=== PATIENT | female | born 1970 | race Caucasian/White ===

== ENCOUNTER 2022-09-21 14:04 | Emergency (ER) | payer OTHER, SELFPAY ==
--- NOTE | ~2022-09-21 | XR_ITS ---
EXAMINATION: XR CHEST CLINICAL INFORMATION: Cough and shortness of breath COMPARISON: Chest x-ray 12/22/2017 TECHNIQUE: 2 views of the chest were obtained. FINDINGS: Lungs appear slightly hyperinflated with mildly increased AP diameter the chest and slight flattening of the diaphragm. No airspace consolidation. No pleural effusion or pneumothorax. Normal cardiomediastinal silhouette. No evidence of pulmonary edema. Mildly exaggerated thoracic kyphosis with multilevel degenerative disc disease. Chronic left posterolateral rib fracture deformities redemonstrated. XR/XR chest 2V IMPRESSION: 1. No acute pulmonary process. 2. Slightly hyperinflated lungs suggesting underlying COPD.
--- NOTE | 2022-09-21 14:32 | ED_ITS ---
HPI - URI/Sore Throat General Chief Complaint: Upper Respiratory Symptoms <Claudine Swanson CNP - Last Filed: 09/21/22 14:34> Stated Complaint: Cough <Claudine Swanson CNP - Last Filed: 09/21/22 14:34> Time Seen by Provider: 09/21/22 15:06 <Claudine Swanson CNP - Last Filed: 09/21/22 14:34> Source: patient <Cherie Ace NP - Last Filed: 09/21/22 17:45> Mode of arrival: ambulatory <Cherie Ace NP - Last Filed: 09/21/22 17:45> Limitations: no limitations <Cherie Ace NP - Last Filed: 09/21/22 17:45> History of Present Illness HPI Narrative: 52-year-old female with a longstanding smoking history presents with 2 months of productive cough with green sputum, wheezing, shortness of breath with activity. Patient denies chest pain, fevers, leg swelling, leg pain. <Cherie Ace NP - Last Filed: 09/21/22 17:45> Related Data Home Medications: Previous Rx's Medication Instructions Recorded albuterol sulfate 90 mcg/actuation 2 puff inhalation Q6H PRN 09/21/22 aerosol inhaler shortness of breath or wheezing #8.5 grams doxycycline monohydrate 100 mg 100 mg PO BID #14 caps 09/21/22 capsule prednisone 20 mg tablet 40 mg PO DAILY #10 tabs 09/21/22 <Claudine Swanson CNP - Last Filed: 09/21/22 14:34> Allergies/Adverse Reactions: Allergies Allergy/AdvReac Type Severity Reaction Status Date / Time No Known Allergies Allergy Unverified 05/10/20 15:57 <Claudine Swanson CNP - Last Filed: 09/21/22 14:34> Review of Systems Review of Systems: Yes all other systems are reviewed and are negative <Cherie Ace NP - Last Filed: 09/21/22 17:45> Constitutional: Constitutional: Reports no additional constitutional complaints, Denies body ache(s), Denies chills, Denies fever(s), Denies headache(s) and Denies weakness <Cherie Ace ENVIRONMENTAL HEALTH MANAGER - Last Filed: 09/21/22 17:45> Eyes: Eyes: Reports no additional eye complaints and Denies change in vision <Cherie Ace ENVIRONMENTAL HEALTH MANAGER - Last Filed: 09/21/22 17:45> ENT: Reports system reviewed and no additional complaints, except as documented, Denies dizziness, Denies headache(s), Denies nasal congestion, Denies nasal discharge and Denies neck pain <Cherie Ace ENVIRONMENTAL HEALTH MANAGER - Last Filed: 09/21/22 17:45> Cardiovascular: Cardiovascular: Reports no additional cardiovascular complaints, Denies chest pain, Denies leg edema and Reports dyspnea <Cherie Ace ENVIRONMENTAL HEALTH MANAGER - Last Filed: 09/21/22 17:45> Respiratory: Respiratory: Reports no additional respiratory complaints, Reports cough, Reports dyspnea and Reports wheezing <Cherie Ace ENVIRONMENTAL HEALTH MANAGER - Last Filed: 09/21/22 17:45> Gastrointestinal: Gastrointestinal: Reports no additional gastrointestinal complaints, Denies abdominal pain, Denies diarrhea, Denies nausea and Denies vomiting <Cherie Ace ENVIRONMENTAL HEALTH MANAGER - Last Filed: 09/21/22 17:45> Genitourinary: Genitourinary: Reports no additional female genitourinary complaints and Denies urinary incontinence <Cherie Ace ENVIRONMENTAL HEALTH MANAGER - Last Filed: 09/21/22 17:45> Musculoskeletal: Musculoskeletal: Reports no additional musculoskeletal complaints, Denies back pain, Denies arthralgias, Denies joint swelling, Denies neck pain, Denies numbness and Denies tingling <Cherie Ace ENVIRONMENTAL HEALTH MANAGER - Last Filed: 09/21/22 17:45> Integumentary/Breasts: Skin/Breast: Reports system reviewed and no additional complaints, except as docu and Denies rash <Cherie Ace ENVIRONMENTAL HEALTH MANAGER - Last Filed: 09/21/22 17:45> Neurologic: Reports system reviewed and no additional complaints, except as documented, Denies Abnormal speech present, Denies dizziness, Denies headache(s), Denies numbness, Denies tingling and Denies weakness <Cherie Ace ENVIRONMENTAL HEALTH MANAGER - Last Filed: 09/21/22 17:45> Allergic/Immunologic: Allergic/Immunologic: Reports wheezing <Cherie Ace NP - Last Filed: 09/21/22 17:45> [facility] Past Medical History Attestation statement: The following information was validated with the patient. <Cherie Ace NP - Last Filed: 09/21/22 17:45> Source: old records reviewed and nursing notes reviewed <Cherie Ace NP - Last Filed: 09/21/22 17:45> Social History Social History: Social History Advance Directives: No Advance Directives Information Provided: No <Claudine Swanson CNP - Last Filed: 09/21/22 14:34> Physical Exam Vital Signs: Vital Signs: Last Vital Signs Temp 97.9 F 09/21/22 14:33 Pulse 72 09/21/22 14:33 Resp 18 09/21/22 14:33 BP 125/56 L 09/21/22 14:33 Pulse Ox 94 09/21/22 14:33 O2 Del Method 09/21/22 14:33 BMI result Body Mass Index 23.0 <Claudine Swanson CNP - Last Filed: 09/21/22 14:34> Vital Signs: Last Vital Signs Temp 97.9 F 09/21/22 14:33 Pulse 72 09/21/22 14:33 Resp 18 09/21/22 14:33 BP 125/56 L 09/21/22 14:33 Pulse Ox 94 09/21/22 14:33 O2 Del Method 09/21/22 14:33 BMI result Body Mass Index 23.0 <Cherie Ace NP - Last Filed: 09/21/22 17:45> Const: General: cooperative, healthy appearing, comfortable and no acute distress <Cherie Ace NP - Last Filed: 09/21/22 17:45> Orientation/consciousness: patient oriented x3 <Cherie Ace NP - Last Filed: 09/21/22 17:45> Limitations: no limitations <Cherie Ace NP - Last Filed: 09/21/22 17 :45> HEENT: Head: Yes normal to inspection <Cherie Ace ENVIRONMENTAL HEALTH MANAGER - Last Filed: 09/21/22 17:45> Ears: hearing grossly normal bilaterally and TM's normal bilaterally <Cherie Ace ENVIRONMENTAL HEALTH MANAGER - Last Filed: 09/21/22 17:45> General nose exam: Normal external nose present <Cherie Ace ENVIRONMENTAL HEALTH MANAGER - Last Filed: 09/21/22 17:45> Face and sinus: Yes normal facial exam <Cherie Ace ENVIRONMENTAL HEALTH MANAGER - Last Filed: 09/21/22 17:45> Mouth: Normal oral and palatal mucosa present <Cherie Ace ENVIRONMENTAL HEALTH MANAGER - Last Filed: 09/21/22 17:45> Throat: Yes posterior oropharynx normal, Yes tonsils normal and Yes uvula midline <Cherie Ace ENVIRONMENTAL HEALTH MANAGER - Last Filed: 09/21/22 17:45> Eyes: General: appearance normal, both eyes and all related structures <Cherie Ace ENVIRONMENTAL HEALTH MANAGER - Last Filed: 09/21/22 17:45> Pupils: Equal, round and reactive pupils present <Cherie Ace ENVIRONMENTAL HEALTH MANAGER - Last Filed: 09/21/22 17:45> Neck: Neck: Yes normal visual inspection, Yes full ROM, Yes no lymphadenopathy and Yes no meningeal signs <Cherie Ace ENVIRONMENTAL HEALTH MANAGER - Last Filed: 09/21/22 17:45> Chest: Chest palpation & inspection: normal inspection of the chest <Cherie Ace ENVIRONMENTAL HEALTH MANAGER - Last Filed: 09/21/22 17:45> Resp: Effort & Inspection: normal respiratory effort <Cherie Ace ENVIRONMENTAL HEALTH MANAGER - Last Filed: 09/21/22 17:45> Auscultation: clear to auscultation bilaterally <Cherie Ace ENVIRONMENTAL HEALTH MANAGER - Last Filed: 09/21/22 17:45> Cardio: Rate: regular rate <Cherie Ace ENVIRONMENTAL HEALTH MANAGER - Last Filed: 09/21/22 17:45> Rhythm: regular rhythm <Cherie Ace ENVIRONMENTAL HEALTH MANAGER - Last Filed: 09/21/22 17:45> Peripheral pulses: Peripheral pulses 2+ throughout <Cherie Pascucci, ENVIRONMENTAL HEALTH MANAGER - Last Filed: 09/21/22 17:45> GI: Inspection: Yes normal to inspection <Cherieimtiaz Ace ENVIRONMENTAL HEALTH MANAGER - Last Filed: 09/21/22 17:45> Palpation (GI): Soft to palpation and nontender <Cherie Delonteeloisa, ENVIRONMENTAL HEALTH MANAGER - Last Filed: 09/21/22 17:45> Auscultation: normal bowel sounds <Cherierich Ace ENVIRONMENTAL HEALTH MANAGER - Last Filed: 17:45> Back/Spine/Pelvis: Thoracic/Lumbar Spine: thoracic and lumbar spine normal to inspection <Cherieimtiaz Ace, ENVIRONMENTAL HEALTH MANAGER - Last Filed: 09/21/22 17:45> Skin: General skin exam: no rashes or lesions noted <Cherieimtiaz Ace ENVIRONMENTAL HEALTH MANAGER - Last Filed: 09/21/22 17:45> Neuro: General: patient oriented x3, no meningeal signs, no focal motor deficits and normal sensation to monofilament <Cherierich Ace ENVIRONMENTAL HEALTH MANAGER - Last Filed: 09/21/22 17:45> Cranial nerves: Yes Equal, round and reactive pupils present <Cherie Delonteeloisa, ENVIRONMENTAL HEALTH MANAGER - Last Filed: 09/21/22 17:45> Cognition (Neuro): normal cognition <Cherieimtiaz Ace ENVIRONMENTAL HEALTH MANAGER - Last Filed: 09/21/22 17:45> Speech: No Abnormal speech present <Cherieimtiaz Ace, ENVIRONMENTAL HEALTH MANAGER - Last Filed: 09/21/22 17:45> Gait exam (Neuro): Normal gait present <Cherierich Ace ENVIRONMENTAL HEALTH MANAGER - Last Filed: 09/21/22 17:45> Motor exam (neuro): 5/5 motor strength present throughout <Cherieimtiaz Ace, ENVIRONMENTAL HEALTH MANAGER - Last Filed: 09/21/22 17:45> Extrem: General: Yes normal to inspection, Yes no pedal edema and Yes no calf tenderness <Cherierich Ace ENVIRONMENTAL HEALTH MANAGER - Last Filed: 09/21/22 17:45> Course Course Course Narrative: This is an RME: Additional HPI, ROS, PE not included below will be deferred to primary provider. Patient is a 52-year-old female presents emergency department with complaints of productive cough, shortness of breath with exertion. Symptoms going on for 1 month without any improvement. Denies fevers, chills, chest pain, hx of lung disease. Reports sister has also been ill with a cough Plan: viral testing, CXR <Claudine Swanson CNP - Last Filed: 09/21/22 14:34> Reevaluation(s) Reevaluation #1: Chest x-ray consistent with COPD. Patient with no known history of same. Recommend patient follow-up with primary care doctor for pulmonary function test. Patient likely with bronchitis. Viral testing negative. No motor pneumonia on x-ray. Patient will be treated for bronchitis with prednisone course, antibiotics. Patient also was sent home with albuterol MDI. Reviewed worrisome signs and symptoms of when to return to the emergency room. Comfortable plan for discharge home. <Cherie Ace NP - Last Filed: 09/21/22 17:45> Medical Decision Making Medical Decision Making [facility] Narrative: 52-year-old female here with 2 months of productive cough with green sputum, wheezing, shortness of breath. No chest pain, fevers, leg swelling or leg pain. On arrival vitals are stable. Lungs are clear. Patient has longstanding tobacco use history. Will obtain viral testing, chest x-ray. <Cherie Ace NP - Last Filed: 09/21/22 17:45> Differential Diagnosis Differential Diagnoses: The differential diagnosis associated with the presentation includes <Cherie Ace NP - Last Filed: 09/21/22 17:45> COPD exacerbation, bronchitis, pneumonia Less likely ACS, less likely PE-no recent travel, no clinical findings concerning for DVT, no hypoxia, tachypnea or tachycardia <Cherie Ace NP - Last Filed: 09/21/22 17:45> Lab Data [facility] Lab Attestation statement: I reviewed the patient's lab results. <Cherie Ace NP - Last Filed: 09/21/22 17:45> Labs: Lab Results 09/21/22 09/21/22 Range/Units 14:41 14:41 COVID-19 (MAZIN) Negative (Negative) COVID-19 Clin Com See Note Influenza Type A (DEBRA) Negative (Negative) Influenza Type B (DEBRA) Negative (Negative) Influenza A & B Note See Note <Claudine Swanson CNP - Last Filed: 09/21/22 14:34> Lab Results 09/21/22 09/21/22 Range/Units 14:41 14:41 COVID-19 (MAZIN) Negative (Negative) COVID-19 Clin Com See Note Influenza Type A (DEBRA) Negative (Negative) Influenza Type B (DEBRA) Negative (Negative) Influenza A & B Note See Note <Cherie Ace NP - Last Filed: 09/21/22 17:45> Independent Interpretation I performed an independent interpretation of an: Plain X-Ray <Cherie Ace NP - Last Filed: 09/21/22 17:45> Interpretation: I independently reviewed the chest x-ray which shows no acute finding <Cherie Ace NP - Last Filed: 09/21/22 17:45> Radiology Impression Discussion of test interpretation with radiology: I have reviewed the radiologist's reading. <Cherie Ace NP - Last Filed: 09/21/22 17:45> Radiologist Impression: Launch?Image [place] [id number] XRay Report Signed Patient: Jordana Sandhu MR#: [id number] : 1970 Acct:[id number] Age/Sex: 52 / F ADM Date: 09/21/22 Loc: .ED Attending Dr: Ordering Physician: Claudine Swanson CNP Date of Service: 09/21/22 Procedure(s): XR chest 2V Accession Number(s): [id number] cc: Claudine Swanosn CNP~ EXAMINATION: XR CHEST CLINICAL INFORMATION: Cough and shortness of breath COMPARISON: Chest x-ray 12/22/2017 TECHNIQUE: 2 views of the chest were obtained. FINDINGS: Lungs appear slightly hyperinflated with mildly increased AP diameter the chest and slight flattening of the diaphragm. No airspace consolidation. No pleural effusion or pneumothorax. Normal cardiomediastinal silhouette. No evidence of pulmonary edema. Mildly exaggerated thoracic kyphosis with multilevel degenerative disc disease. Chronic left posterolateral rib fracture deformities redemonstrated. XR/XR chest 2V IMPRESSION: 1.? No acute pulmonary process. 2.? Slightly hyperinflated lungs suggesting underlying COPD. ? <Cherie Ace NP - Last Filed: 09/21/22 17:45> Discharge Plan Discharge Clinical Impression: Bronchitis <Claudine Swanson CNP - Last Filed: 09/21/22 14:34> Patient Disposition: Home, Self-Care <Claudine Swanson CNP - Last Filed: 09/21/22 14:34> Instructions: Acute Bronchitis (ED) <Claudine Swanson CNP - Last Filed: 09/21/22 14:34> Additional Instructions: Your testing for flu, COVID, RSV are negative Your x-ray shows no signs of pneumonia but it does show some underlying COPD Please follow-up with primary care doctor for lung function test <Claudine Swanson CNP - Last Filed: 09/21/22 14:34> Prescriptions: New doxycycline monohydrate 100 mg capsule 100 mg PO BID Qty: 14 0RF prednisone 20 mg tablet 40 mg PO DAILY Qty: 10 0RF albuterol sulfate 90 mcg/actuation HFA aerosol inhaler 2 puff inhalation Q6H PRN (Reason: shortness of breath or wheezing) Qty: 8.5 0RF <Claudine Swanson CNP - Last Filed: 09/21/22 14:34> Referrals: Tsering Torres MD [Primary Care Provider] - 10 days <Claudine Swanson CNP - Last Filed: 09/21/22 14:34> Interventions: ED Discharge Assessment Last Done: 09/21/22 16:17 <Claudine Swanson CNP - Last Filed: 09/21/22 14:34> Discharge Date/Time: 09/21/22 16:19 <Claudine Swanosn CNP - Last Filed: 09/21/22 14:34>
[2022-09-21 14:33] VITALS: BP 125/56; PULSE 72; RESP 18; TEMP 36.6; O2SAT 94; BMI 23.0
[2022-09-21 14:59] LABS: COVID-19 Test Negative (Negative); IDNOW Serial# 6674DD1D
[2022-09-21 15:08] LABS: IDNOW Serial# 16C4AD1C; Influenza A Negative (Negative); Influenza B2 Negative (Negative)
== END 2022-09-21 16:19 | disposition home or self-care (01) ==
PROVIDERS: Nurse Practitioner Family; Emergency Provider Student in an Organized Health Care Education/Training Program; PCP Internal Medicine
DX: J40 Bronchitis, not specified as acute or chronic (principal); J06.9 Acute upper respiratory infection, unspecified; R06.02 Shortness of breath; R05.9 Cough, unspecified; F17.210 Nicotine dependence, cigarettes, uncomplicated; Z71.6 Tobacco abuse counseling; Z79.899 Other long term (current) drug therapy; Z20.828 Contact with and (suspected) exposure to other viral communicable diseases; Z20.822 Contact with and (suspected) exposure to COVID-19
CPT/HCPCS: 71046; 87502; 87635; 99283

== ENCOUNTER 2024-12-20 16:23 | Outpatient (REF) | payer OTHER, SELFPAY ==
--- NOTE | ~2024-12-20 | CT_ITS ---
CLINICAL HISTORY: POLYP OF NASAL CAVITY CT sinuses without contrast Comparison: None Findings: Minimal to mild right frontal and bilateral maxillary sinus mucosal thickening. Otherwise clear paranasal sinuses. Patent OMCs. Midline nasal septum. Clear nasal cavity and nasopharynx without evidence of polyp. Visualized brain and soft tissues are unremarkable. The orbits are normal. No acute fractures. IMPRESSION: Minimal to mild right frontal and bilateral maxillary sinus mucosal thickening. Otherwise clear paranasal sinuses. Midline nasal septum. Clear nasal cavity and nasopharynx without evidence of polyp. This document has been electronically signed by: Angeli Amaro MD on 12/21/2024 11:43:09
== END 2024-12-20 16:24 | disposition home or self-care (01) ==
LOC: HO.CT 16:23
PROVIDERS: PCP Internal Medicine; Visit Provider Otolaryngology
DX: J33.0 Polyp of nasal cavity (principal)
CPT/HCPCS: 70486

== ENCOUNTER → 2024-12-20 16:35 | Outpatient (BNV) | payer OTHER, SELFPAY | PROVIDERS: PCP Internal Medicine; Visit Provider Radiology Diagnostic Radiology | DX: J33.0 Polyp of nasal cavity (principal) | CPT/HCPCS: 70486 ==